=== PATIENT | female | born 1965 | race Caucasian/White ===

== ENCOUNTER → 2018-05-14 | Outpatient (CLI) | payer MEDICARE ==
--- NOTE | 2018-05-14 14:14 | DIREP ---
PROCEDURE:XRAY HUMERUS MIN 2 VWS-RT COMPARISON:[facility], CR, XRAY FOREARM 2 VWS-RT, 05/14/2018, 01:00 PM. [facility], CR, XRAY ELBOW 2VWS-RT, 05/14/2018, 01:00 PM. INDICATIONS:RIGHT ARM PAIN M79.601 FINDINGS: BONES:No fracture. JOINTS:No dislocation. Mild acromioclavicular glenohumeral arthrosis. A small calcific density is seen within the lateral aspect of the subacromial space, suggestive of calcific tendinosis. SOFT TISSUES:Normal. OTHER:Visualized portions the right lung are clear. CONCLUSION: 1. No acute abnormality involving the right humerus. 2. 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 Dictated by: Contreras Higuera MD on 05/14/2018 at 02:11 PM
--- NOTE | 2018-05-14 14:16 | DIREP ---
PROCEDURE:XRAY FOREARM 2 VWS-RT COMPARISON:[facility], CR, XRAY ELBOW 2VWS-RT, 05/14/2018, 01:00 PM. [facility], CR, XRAY HUMERUS MIN 2 VWS-RT, 05/14/2018, 01:00 PM. INDICATIONS:RIGHT ARM PAIN M79.601 FINDINGS: BONES:Normal. No fracture. JOINTS:Normal. No dislocation. SOFT TISSUES:Mild soft tissue swelling overlying the dorsal aspect of the proximal to mid forearm. OTHER:No additional findings. CONCLUSION: Mild soft tissue swelling overlying the dorsal aspect of the proximal to mid right forearm. No underlying osseous abnormality. Dictated by: Contreras Higuera MD on 05/14/2018 at 02:13 PM
--- NOTE | 2018-05-14 14:17 | DIREP ---
PROCEDURE:XRAY ELBOW 2VWS-RT COMPARISON:[facility], CR, XRAY FOREARM 2 VWS-RT, 05/14/2018, 01:00 PM. [facility], CR, XRAY HUMERUS MIN 2 VWS-RT, 05/14/2018, 01:00 PM. INDICATIONS:RIGHT ARM PAIN M79.601 FINDINGS: BONES:Normal. No fracture. JOINTS:Normal. No dislocation. No joint effusion. SOFT TISSUES:Mild soft tissue swelling overlying the dorsal aspect of the proximal ulna. OTHER:Normal. CONCLUSION: Mild soft tissue swelling overlying the dorsal aspect of the proximal right ulna. No underlying osseous abnormality. Dictated by: Contreras Higuera MD on 05/14/2018 at 02:15 PM
== END | disposition home or self-care (01) ==
LOC: RAD 12:40
PROVIDERS: ATTEND Nurse Practitioner Family
DX: M19.011 Primary osteoarthritis, right shoulder (principal); R22.41 Localized swelling, mass and lump, right lower limb; I10 Essential (primary) hypertension; J45.909 Unspecified asthma, uncomplicated
CPT/HCPCS: 73060-RT; 73070-RT; 73090-RT